=== PATIENT | male | born 1940 | race Caucasian/White ===

== ENCOUNTER 2019-04-14 07:41 | Day surgery (SDC) | payer MEDICARE, BC ==
[2019-04-12 15:25] VITALS: BP 119/68
[2019-04-12 15:36] LABS: EOSINOPHILS % (AUTO) 3.3 % (0.0-8.0); HEMATOCRIT 43.6 % (42-54); LYMPHOCYTES % (AUTO) 28.1 % (21.0-51.0); MEAN CORPUSCULAR HEMOGLOBIN 31.9 pg (27.0-33.0); MEAN CORPUSCULAR HGB CONC 33.7 g/dL (32.0-36.0); MEAN CORPUSCULAR VOLUME 94.7 fL (79-99); MONOCYTES % (AUTO) 10.4 % (3.0-13.0); NEUTROPHILS % (AUTO) 57.2 % (40.0-77.0); PLATELET COUNT (AUTO) 239 K/uL (130-400); RED BLOOD CELL COUNT(AUTO) 4.61 MIL/uL (4.50-6.20); RED CELL DISTRIBUTION WIDTH 13.1 % (11.0-15.5); WHITE BLOOD COUNT (AUTO) 6.1 K/uL (4.8-10.8)
[2019-04-12 15:53] LABS: CREATININE 0.6 mg/dL (0.5-1.5); POTASSIUM 3.8 mmol/L (3.5-5.1)
[2019-04-12 15:57] LABS: INR 1.02 (0.85-1.15); PARTIAL THROMBOPLASTIN TIME 27.3 SEC (26.3-35.5); PROTHROMBIN TIME 10.7 SEC (9.6-11.6)
[2019-04-14] VITALS (9 sets, daily range): BP systolic 122–137; BP diastolic 67–83
[~2019-04-14] VITALS: Ht 175.3 cm; Wt 95.6 kg
[~2019-04-14 07:41] MED LIST: ANDROGEL TP; DOXY50TA14 PO; LATA2.5D2 OU; LOSA50TA64 PO; LYCO10CA3 PO; METF-444 PO; METO25TA6 PO; SIMV20TA6 PO; SODIUM CHLORIDE 0.9% 1000ML 1,000 ML IV SCH; TADA20TA PO; TAMS-1 PO; [UNRECOGNIZED DRUG - OTHER] PO
[2019-04-14] MEDS ORDERED: LIDOCAINE HCL 2% 20ML ONE (12:21)
[2019-04-14] MEDS ORDERED: HEPARIN SODIUM 1000UNIT/ML 10ML VIAL ONE (12:21)
[2019-04-14] MEDS ORDERED: MEPERIDINE-PF 25 MG/ML SYG ONE ×2 (13:53→14:06)
[2019-04-14] MEDS ORDERED: MIDAZOLAM HCL 1 MG/ML 2ML VIAL ONE ×2 (13:53→14:06)
[2019-04-14] MEDS ORDERED: ACETAMINOPHEN 325 MG TAB PO PRN (14:45)
== END 2019-04-14 18:50 | disposition home or self-care (01) ==
LOC: DAH 07:41
PROVIDERS: ATTEND Internal Medicine Cardiovascular Disease
DX: I48.3 Typical atrial flutter (principal); I10 Essential (primary) hypertension; E11.9 Type 2 diabetes mellitus without complications; E78.00 Pure hypercholesterolemia, unspecified; Z79.84 Long term (current) use of oral hypoglycemic drugs; Z79.899 Other long term (current) drug therapy; Z79.01 Long term (current) use of anticoagulants; Z72.89 Other problems related to lifestyle; Z82.49 Family history of ischemic heart disease and other diseases of the circulatory system; Z82.3 Family history of stroke
CPT/HCPCS: 36415; 80048; 82948; 85025; 85610; 85730; 93613; 93621; 93653; A4606; A4649; C1730 ×2; C1732; C1893; C1894 ×2; J1644 ×2; J2175 ×2; J2250 ×2; J3490; 99156; 99157